=== PATIENT | male | born 1960 | race Caucasian/White ===

== ENCOUNTER → 2017-02-24 | Outpatient (CLI) | payer OTHER ==
[~2017-02-24] MED LIST: BENTYL 10 MG CA10 M1 PO; CELEXA20 MG PO; CLEOCIN HCL150 MG PO; CYCLOBENZAPRINE10 MG PO; CYCLOBENZAPRINE5 MG PO; DICLOFENAC SODI25 MG PO; GEMFIBROZIL 60600 M1 PO; GLYBURIDE 5 MG T5 M1 PO; LISINOPRIL20 MG PO; METFORMIN HCL500 MG PO; MOBIC15 MG PO; MS CONTIN15 MG PO; NEURONTIN600 MG PO; NORCO 10-325 T1 EACH PO; NORCO 5-325 TA1 EACH PO; OMEPRAZOLE 20 M20 M1 PO; OXYCODONE HCL 55 MG PO
== END ==
LOC: MRI 15:11
DX: M48.02 Spinal stenosis, cervical region (principal); M47.22 Other spondylosis with radiculopathy, cervical region; M54.2 Cervicalgia